=== PATIENT | male | born 1995 | race Caucasian/White ===

== ENCOUNTER → 2019-03-22 | Outpatient (CLI) | payer BC ==
--- NOTE | 2019-03-22 15:55 | KCIC ---
MR of the right shoulder HISTORY: Right shoulder pain. Pain is chronic. FINDINGS: The acromioclavicular joint is intact. Borderline thickening and signal within the rotator cuff suggesting tendinosis. No evidence of a tear. Only trace subdeltoid bursal effusion. No significant joint effusion. No evidence of labral tear or para labral cyst. No acute articular cartilage defect. Biceps tendon is intact. No bone destruction or acute fracture. No acute soft tissue abnormality. IMPRESSION: Borderline rotator cuff tendinosis. No evidence of tear. Electronically signed by: Yuan Haynes MD (03/22/2019 3:52 PM) [id number]
== END | disposition home or self-care (01) ==
LOC: KCIC MRI 14:25
PROVIDERS: ATTEND Family Medicine
DX: M75.81 Other shoulder lesions, right shoulder (principal)
CPT/HCPCS: 73221